=== PATIENT | female | born 1980 | race Two or more races ===

== ENCOUNTER → 2018-10-30 | Outpatient (REF) | LOC: M LAB LCGH 10:50 | PROVIDERS: ATTEND Obstetrics & Gynecology | DX: O28.1 Abnormal biochemical finding on antenatal screening of mother (principal); Z3A.00 Weeks of gestation of pregnancy not specified ==

== ENCOUNTER → 2018-12-20 | Outpatient (REF) | LOC: M LAB LCGH 13:28 | PROVIDERS: ATTEND Obstetrics & Gynecology | DX: Z34.80 Encounter for supervision of other normal pregnancy, unspecified trimester (principal); Z3A.00 Weeks of gestation of pregnancy not specified ==

== ENCOUNTER → 2024-11-05 | Outpatient (REF) | payer OTHER | LOC: M SFHCDERM 17:37 | PROVIDERS: ATTEND Physician Assistant | DX: L72.0 Epidermal cyst (principal); B07.9 Viral wart, unspecified ==